=== PATIENT | female | born 1950 | race Caucasian/White ===

== ENCOUNTER 2020-06-12 18:54 | Inpatient (IN) | payer OTHER, SELFPAY ==
[2020-06-12] VITALS (15 sets, daily range): BP systolic 133–246; BP diastolic 67–117; PULSE 60–93; RESP 16–21; TEMP 36.4–36.6; O2SAT 94–99; BMI 58.8; BMI 26.0; BMI 25.7; BMI 68.0
--- NOTE | 2020-06-12 19:01 | ED.RN ---
[facility] IN. PHONE # [phone]. PLEASE CALL WITH ANY UPDATES OR QUESTIONS.
--- NOTE | 2020-06-12 19:24 | CT_ITS ---
STUDY: CT BRAIN WITHOUT CONTRAST REASON FOR EXAM: Female, 70 years old. Facial weakness. RADIATION DOSAGE (If Supplied By Facility): CTDIvol = ( 44.99 ) mGy, DLP = ( 745.49 ) mGycm TECHNIQUE: Transaxial CT imaging of the brain was performed without administration of intravenous contrast material. Individualized dose optimization techniques were used for this CT. COMPARISON: No relevant priors. FINDINGS: Normal soft tissue structures. Normal calvarium. Normal size ventricles and extra-axial spaces for the patient''s age. There are areas of decreased attenuation within the white matter tracts of the supratentorial brain, consistent with microvascular disease changes. There are remote appearing infarcts in both basal ganglia. Lacunar infarct in the right thalamus. Normal brainstem. Normal cerebellum. There is no intracranial hemorrhage. There are no findings of an acute ischemic infarction. Normal visualized paranasal sinuses. CT/Brain/Head without Contrast IMPRESSION: 1. Hypodensities in both basal ganglia and the right thalamus suggesting remote lacunar infarcts. There is continued concern for acute infarct, MRI is recommended. 2. Mild chronic involutional changes appropriate for the patient''s age. Electronically Signed: Praveen Ferrari DO at 20:13 EDT Tel [phone], Service support ,
--- NOTE | 2020-06-12 19:24 | EKG12_ITS ---
Test Reason : NEURO Blood Pressure : / mmHG Vent. Rate : 072 BPM Atrial Rate : 072 BPM P-R Int : 182 ms QRS Dur : 086 ms QT Int : 420 ms P-R-T Axes : 000 -23 148 degrees QTc Int : 459 ms Normal sinus rhythm Minimal voltage criteria for LVH, may be normal variant Lateral infarct , age undetermined , cannot be excluded Abnormal ECG Confirmed by ARNULFO HOPKINS, SHARON ([id number]), editor magazine KETTY GONZALEZ ([id number]) on 06/14/2020 12:46:47 PM Referred By: HUGH Confirmed By:SHARON ARREDONDO MD
--- NOTE | 2020-06-12 19:32 | ED.VISSUMM ---
- ER Visit Summary Date of Service: 06/12/20 Chief Complaint: Hypertension and left facial weakness History of Present Illness: The patient is a 70 F who presents with hypertension left facial weakness that began last week. Patient has been having facial droop since last week. Patient denies any headaches. Patient denies any weakness of her arms or legs. Patient denies any visual changes. Patient states she has noticed her blood pressure to be elevated today. Patient states nothing has been helping her blood pressure. Patient denies any recent fevers or chills. Patient only takes herbal medications. Physical Examination: Vital signs are stable except for an elevated blood pressure of 246/117. Patient is afebrile. Patient is in no acute distress. Oral mucosa is pink and moist. Neck is supple. Trachea is midline. There is no JVD. Pupils are equal, round, and reactive to light bilaterally. Extraocular muscles are intact. Cranial nerves II through XII are intact. There is weakness of the left lower face. Eyebrows are able to elevate equally. Strength is 5/5 bilaterally in the upper and lower extremities. There are no sensory deficits noted. Heart was regular rate and rhythm. Lungs are clear and equal bilateral. Abdomen is soft. Bowel sounds are normal. There is no tenderness. Extremities are intact. There is no calf tenderness or edema. Test Results: EKG was obtained. On my interpretation, it showed a normal sinus rhythm with a rate of 92. DC interval, QRS interval, and QTc intervals were all normal. [place] was normal. There his left ventricular hypertrophy with strain. There are no prior EKGs available for comparison. CT scan of the brain was obtained. There are remote lacunar infarcts in the basal ganglia bilaterally. MRI was recommended for continued concern for possible acute infarct. This was interpreted by the radiologist and reviewed by myself. Portable 1 view chest x-ray was obtained. On my interpretation, lung pop are clear. There is normal cardiac silhouette. Bony thorax is normal. There is no acute process noted. Radiologist also interpreted the x-ray and agrees. CBC was normal. Comprehensive metabolic profile showed a potassium of 2.9. Urinalysis does not show any evidence of urinary tract infection. Troponin was normal. Emergency Department Course and Treatment: Patient was given a dose of labetalol here. She was given a dose of oral potassium. Patient's blood pressure did improve to 203/98 but then went back up to 223/95. Patient was started on a Cardene drip. Case was discussed with the hospitalist. He will admit the patient to ICU. Patient and family understood and were agreeable with the plan. All questions were answered. Disposition: Admit to ICU Impression: 1. Hypertensive emergency Critical care time: 30 minutes. This was time spent obtaining history, performing physical examination, documenting, interpreting test results, ordering medications, discussion with consultants, and determining disposition. This note was generated with [employer] dictation software. It may contain incorrect words, spelling, and punctuation that were not noted in review of the chart prior to signing ED Disposition - Plan for ED Patient: Disposition: Acute Care Hospital [facility] Diagnosis: Hypertensive emergency Referrals: Rosa Cole MD [STAFF PHYSICIAN] -
[2020-06-12 19:48] LABS: Mucous, Urine 0 SEEN /hpf (<or=2+); Red Blood Cells-Urine 0 SEEN /hpf (0-5); Squamous Epithelial Cells - UA 0 SEEN /hpf (5-10)
[2020-06-12 19:49] LABS: Absolute Lymphocyte Count 1.85 X10^3/uL (0.83-4.51); Absolute Neutrophil Count 2.5 X10^3/uL (2.0-7.7); Basophil# 0.04 X10^3/uL; Basophil% 0.8 % (0-1); Eosinophil# 0.17 X10^3/uL; Eosinophils% 3.5 % (0-5); Hematocrit 37.6 % (37-47); Hemoglobin 12.6 g/dL (12.0-15.0); Lymphocyte # 1.85 X10^3/ul (4.0); Lymphocyte % 37.8 % (19-41); Mean Corp Hgb Conc 33.5 g/dL (32-36); Mean Corpuscular Hgb 29.6 pg (27.0-32.0); Mean Corpuscular Volume 88.5 fL (81-99); Mean Platelet Vol. 9.4 fl (6.2-12.0); Monocyte# 0.38 X10^3/uL; Monocyte% 7.8 % (0-10); NRBC Flagged by Analyzer 0 % (0-5); Neutrophil # 2.45 X10^3/uL (2.7-7.7); Neutrophil % 49.9 % (47-70); Platelet Count 147 K/mm3 (150-450); RBC Distribution Width CV 13.1 % (11.6-14.6); RBC Distribution Width SD 42.4 fl (35.1-43.9); Red Blood Count 4.25 M/mm3 (4.2-5.4); White Blood Count 4.9 K/mm3 (4.4-11.0)
[2020-06-12] MEDS: Labetalol (Prefilled) 20 MG/4 ML IV (19:51)
[2020-06-12 19:57] LABS: Color, Urine Yellow (Yellow); Glucose, Dipstick Normal (Normal); Ketone-Dipstick Negative (Negative); Leukocyte Esterase-Dipstick 100 /ul (Negative); Nitrite-Dipstick Negative (Negative); Occult Blood-Urine 10 /ul (Negative); Protein-Dipstick 15 mg/dl (Negative); Urine Bilirubin Dipstick Negative (Negative); Urine Clarity Clear (Clear); Urine Urobilinogen Normal (Normal); Urine pH 6.5 (5.0 - 8.0)
[2020-06-12 20:09] LABS: AST(SGOT) 18 U/L (15-37); Alanine Aminotransfer ALT/SGPT 34 U/L (13-56); Albumin, Serum 3.5 g/dL (3.2-5.0); Alkaline Phosphatase 52 U/L (45-117); Anion Gap 3 (5-15); BUN 19 mg/dL (7-18); BUN/Creat Ratio 24.2 RATIO (10-20); Calcium,Total 8.7 mg/dL (8.5-10.1); Chloride 106 mmol/L (98-107); Creatinine, Serum 0.78 mg/dL (0.55-1.02); EST Glomerular Filtration Rate 77 mL/min (>60); Est Glom Filt Rate - Afr Amer 93 mL/min (>60); Globulin 3.5 g/dL (2.2-4.2); Glucose 96 mg/dL (74-106); Potassium 2.9 mmol/L (3.5-5.1); Sodium Level 143 mmol/L (136-145)
[2020-06-12 20:13] LABS: Bacteria 1+ /hpf (None Seen); White Blood Cells 0-5 SEEN /hpf (0-5)
--- NOTE | 2020-06-12 20:34 | RAD_ITS ---
STUDY: X-RAY CHEST REASON FOR EXAM: Female, 70 years old. Weakness. TECHNIQUE: Single AP portable view of the chest. COMPARISON: None. FINDINGS: Lungs well expanded. There is no acute infiltrate and question small calcified granuloma at the right lung base. There is no pneumothorax.. There is no demonstrated pleural abnormality. Normal size heart. Normal mediastinum and amos. Normal visualized pulmonary arteries. There is minimal atherosclerotic calcification of the aortic arch with tortuosity. There is mild levoscoliosis of the thoracic spine. Normal visualized ribs, clavicles, and shoulders. There is no demonstrated abnormality of the visualized soft tissue structures of the upper abdomen. RAD/Chest 1 View (Portable) IMPRESSION: No acute cardiopulmonary disease. Electronically Signed: Praveen Ferrari DO at 20:54 EDT Tel [phone], Service support ,
[2020-06-12] MEDS: Potassium Chloride Oral Tablet 20 MEQ 40 MEQ PO (20:36)
--- NOTE | 2020-06-12 22:10 | ECHOD_ITS ---
Reason For Study: TIA/CVA Procedure This was a 2D Doppler, Color Flow transthoracic echocardiogram. Exam performed portable in ICU/CCU. Left Ventricle Normal LV size. Concentric left ventricular hypertrophy. Presence of sigmoid septum. Left ventricular systolic function is normal. The estimated ejection fraction is 70 %. Stage 1 diastolic dysfunction. E/E' suggestive of increased left atrial filling pressure. No regional wall motion abnormalities noted. Right Ventricle Normal right ventricle. Normal systolic function. Atria The left atrium is mildly enlarged. Normal right atrium. Mitral Valve Mild (1+) eccentric mitral valve insufficiency. Tricuspid Valve Mild to moderate (1-2+) tricuspid valve insufficiency. Normal pulmonary artery pressure. Aortic Valve Normal aortic valve. Pulmonic Valve The pulmonic valve is not well visualized. Great Vessels The pulmonary artery is normal size. Pericardium/Pleural No pericardial effusion. Medication Performed a rapid injection of agitated mix of 9 cc saline and 1cc air to assess for atrial septal defect. Contrast study showed no right to left shunting. MMode/2D Measurements & Calculations LVIDd: 3.7 cm IVSd: 1.8 cm Ao root diam: 3.2 cm LVIDs: 2.1 cm LVPWd: 1.6 cm RVDd: 3.4 cm FS: 43.8 % LAV(MOD-bp): 62.2 ml EDV(MOD-sp4): 64.7 ml EDV(MOD-sp2): 63.5 ml LAV(MOD-bp) Indexed: 35.4 ml/m2 ESV(MOD-sp4): 19.1 ml EF(MOD-sp2): 62.5 % LAV(MOD-sp2): 52.6 ml EF(MOD-sp4): 70.4 % LAV(MOD-sp4): 65.9 ml SV(MOD-sp4): 45.6 ml SV(MOD-sp2): 39.7 ml LA A4 area: 20.4 cm2 LA dimension(2D): 2.8 cm RA A4 area: 16.5 cm2 Doppler Measurements & Calculations MV E max adithya: 59.3 cm/sec Lat Peak E' Adithya: 4.8 cm/sec Med Peak E' Adithya: 3.9 cm/sec MV A max adithya: 75.6 cm/sec E/E' lat: 12.2 E/E' med: 15.0 MV E/A: 0.79 Ao V2 max: 135.1 cm/sec LV V1 max: 90.5 cm/sec PA V2 max: 79.1 cm/sec Ao max P.3 mmHg LV V1 max P.3 mmHg TR max adithya: 236.3 cm/sec TR max P.6 mmHg ECHO/Echo Complete Interpretation Summary Stage 1 diastolic dysfunction. Normal LV size. Concentric left ventricular hypertrophy. Presence of sigmoid septum Left ventricular systolic function is normal. The estimated ejection fraction is 70 %. E/E' suggestive of increased left atrial filling pressure The left atrium is mildly enlarged. Mild (1+) eccentric mitral valve insufficiency. Mild to moderate (1-2+) tricuspid valve insufficiency. Normal pulmonary artery pressure. Contrast study showed no right to left shunting Ordering Physician: Ghassan Angelo Referring Physician: Fer Long Performed By: Christina Scott RDCS
[2020-06-12] MEDS: Atorvastatin Calcium 40 MG Tablet PO (22:47)
[2020-06-12] MEDS: Potassium Chloride 10mEq/100mL 10 MEQ/100 ML IV.SOLN. 100 MEQ IV BOLUS (22:47)
--- NOTE | 2020-06-12 22:54 | PCM.HP.STD ---
Problem List (1) Hypertensive emergency Status: Acute (2) Stroke-like symptoms Status: Acute History of Present Illness Date of Admission: 06/12/20 Chief Complaint: Left facial droop The patient is a 70 year old Zain female with a significant history of hypertension on herbs who presents to the emergency department with weakness of the left face x1 week. Reportedly patient saw some kind of provider on the same day of presentation and she was instructed to come to the emergency department. Her symptoms has been persistent and same. . Past Medical History Medical History: Medical History (Last Updated 06/12/20 @ 23:[address] Ghassan Angelo MD) Hypertension I10 Allergies No Known Allergies Allergy (Verified 06/12/20 18:58) Home Medications: Ambulatory Orders Medication Instructions Recorded NK 06/12/20 Surgical History: no surgical history, - Smoking Status: Never smoker - *Family History Maternal History Items: Hypertension, Stroke Paternal History Items: Heart Disease Review of Systems Constitutional: Denies: Chills, Fever, Weight Change HEENT: Denies: Head Aches, Sinus Congestion, Sinus Drainage Cardiovascular: Denies: Chest Pain, Palpitations Respiratory: Denies: Cough, Shortness of breath at rest, Sputum production Gastrointestinal: Denies: Abdominal Pain, Nausea, Vomiting Genitourinary: Denies: Dysuria Musculoskeletal: Denies: Joint Pain, Joint Tenderness Skin: Denies: Rash, Wounds Neurological: Denies: Numbness, Tingling Psychiatric: Denies: Anxiety, Depression, Homicidal Ideations, Suicidal Ideations Hematologic/ Lymphatic: Denies: Easy Bruising, Easy Bleeding VTE Information - Inpt Only VTE Present on Admission: No VTE Mechan Device Prophylaxis: None VTE Pharm Prophylaxis ordered?: Yes Patient Problems: Active and Suspected Problems (Last Updated 06/12/20 @ 23:[address] Ghassan Angelo MD) Hypertensive emergency (Acute) Stroke-like symptoms (Acute) - Physical Exam Vitals/I&O's: Vital Signs Temp Pulse Resp BP Pulse Ox 97.6 F L 81 19 H 152/67 H 95 06/12/20 22:16 06/12/20 22:30 06/12/20 22:30 06/12/20 22:30 06/12/20 22:30 Oxygen Delivery Method Room Air Weight: 68.039 kg Body Mass Index (BMI) 25.7 Finger Stick Blood Glucose 96 General: Alert, Oriented x3, Cooperative HEENT: Atraumatic, PERRLA, EOMI, Normocephalic Neck: Supple, No JVD, Negative Carotid Bruits Lungs: Clear to auscultation, Normal air movement Cardiovascular: Regular rate, Normal S1, Normal S2, No murmurs Abdomen: Bowel Sounds Present, Soft, Non Tender Extremities: No edema, Capillary Refill Less than 3 Seconds Skin: No rashes, No breakdown Musculoskeletal: No Tenderness to Palpation of Joints or Extremities Neurological: Cranial nerves II-XII grossly intact, Facial Droop - Left, Sensory exam intact to light touch and pain, - - No dysmetria. Psych/Mental Status: Normal Affect, Appropriate Laboratory Results 06/12/20 19:20: Urine Color Yellow, Urine Clarity Clear, Urine pH 6.5, Ur Specific [place] 1.010, Urine Protein 15 H, Urine Glucose (UA) Normal, Urine Ketones Negative, Urine Occult Blood 10 H, Urine Nitrite Negative, Urine Bilirubin Negative, Urine Urobilinogen Normal, Ur Leukocyte Esterase 100 H, Urine RBC 0 SEEN, Urine WBC 0-5 SEEN, Ur Squamous Epith Cells 0 SEEN, Urine Bacteria 1+, Urine Mucus 0 SEEN 06/12/20 19:30: WBC 4.9, RBC 4.25, Hgb 12.6, Hct 37.6, MCV 88.5, MCH 29.6, MCHC 33.5, RDW Std Deviation 42.4, RDW Coeff of [place] 13.1, Plt Count 147 L, MPV 9.4, Immature Gran % (Auto) 0.200, Neut % (Auto) 49.9, Lymph % (Auto) 37.8, [place] % (Auto) 7.8, Eos % (Auto) 3.5, Baso % (Auto) 0.8, Absolute Neuts (auto) 2.5, Absolute Lymphs (auto) 1.85, Nucleated RBC % 0 06/12/20 19:30: Sodium 143, Potassium 2.9 L, Chloride 106, Carbon Dioxide 34.0 H, Anion Gap 3 L, BUN 19 H, Creatinine 0.78, Estim Creat Clear Calc 47.10, Est GFR (MDRD) Af Amer 93, Est GFR (MDRD) Non-Af 77, BUN/Creatinine Ratio 24.2 H, Glucose 96, Calcium 8.7, Total Bilirubin 0.50, AST 18, ALT 34, Alkaline Phosphatase 52, Troponin I < 0.015, Total Protein 7.0, Albumin 3.5, Globulin 3.5, Albumin/Globulin Ratio 1.0 Current Medications Acetaminophen (Acetaminophen 325 Mg Tablet) 650 mg PO Q6H PRN PRN PRN Reason: Pain Score 1-10/Temp > 100.7 F Aspirin (Aspirin 81 Mg Tab.Chew) 81 mg PO DAILY@0800 [facility] Atorvastatin Calcium (Atorvastatin Calcium 40 Mg Tablet) 40 mg PO QHS [facility] Last Admin: 06/12/20 22:47 Dose: 40 mg Documented by: Enoxaparin Sodium (Enoxaparin 40 Mg/0.4 Ml Syringe) 40 mg SC DAILY [facility] Nicardipine HCl 25 mg/ Sodium (Chloride) 250 mls @ 50 mls/hr CONT INF .Q5H [facility]; Protocol Last Admin: 06/12/20 21:32 Dose: 5 mg/hr, 50 mls/hr Documented by: Potassium Chloride () 10 meq in 100 mls @ 100 mls/hr IV BOLUS Q1H [facility] Stop: 06/13/20 02:14 Last Admin: 06/12/20 22:47 Dose: 100 mls/hr Documented by: Sodium Chloride () 250 mls @ 15 mls/hr IV .[id number] PRN PRN Reason: Saline Flush Melatonin (Melatonin 3 Mg Tablet) 3 mg PO QHS PRN PRN PRN Reason: INSOMNIA Ondansetron HCl (Ondansetron 4 Mg/2 Ml Vial) 4 mg IV Q8H PRN PRN PRN Reason: NAUSEA/VOMITING Senna/Docusate Sodium (Senna/Docusate Sodium 1 Tablet) 2 tablet PO BID PRN PRN PRN Reason: Constipation Sodium Chloride (0.9% Saline Lock 10 Ml Syringe) 10 - 40 ml IV UD PRN PRN Reason: SALINE FLUSH Assessment/Plan All Active Problems (Last Updated 06/12/20 @ 23:[address] Ghassan Angelo MD) Hypertensive emergency (Acute) Stroke-like symptoms (Acute) The patient is a 70 year old Zain female with a significant history of hypertension on herbs who presents to emergency department with weakness of the left face x1 week; and found to have severely elevated blood pressure. Hypertensive emergency On Cardene drip at emergency department and continued. Continue Cardene drip to keep map of less than 125. Echocardiogram ordered. Actual EKG image was reviewed. EKG with LVH. Urinalysis with mild proteinuria. Strokelike symptoms Serial NINDS NIH Scale ordered CT of the head with hypodensities in both basal ganglia and the right thalamus suggesting remote lacunar infarcts. -Check Hba1c, Lipid level Physical therapy, occupational therapy to work with patient. N.p.o. until bedside swallow eval. Daily aspirin. High intensity statin ordered. Liver enzymes are unremarkable. Patient is outside window of permissive hypertension. MRI/MRA of head; brain; and neck. Echocardiogram as above. Hypokalemia Received po replacement at the emergency department. 40 mEq IV potassium ordered. Trend BMP. Check magnesium. Asymptomatic bacteriuria Patient with urine protein of 15. Urine occult blood obtained. Urine leukocyte Estrace of 100. No treatment indicated at this time since patient has no symptoms. Urine bacteria 1+. With positive urine occult blood recommend longitudinal follow-up. DVT prophylaxis Subcutaneous Lovenox ordered. Inpatient E&M: 70559 Init Hosp L3
[2020-06-13] VITALS (27 sets, daily range): BP systolic 145–231; BP diastolic 65–104; PULSE 57–82; RESP 14–24; TEMP 36.6–36.9; O2SAT 95–99
[2020-06-13] MEDS: Potassium Chloride 10mEq/100mL 10 MEQ/100 ML IV.SOLN. 100 MEQ IV BOLUS ×3 (00:01→02:53)
[2020-06-13 03:21] LABS: Anion Gap 7 (5-15); BUN 16 mg/dL (7-18); BUN/Creat Ratio 26.3 RATIO (10-20); Calcium,Total 8.7 mg/dL (8.5-10.1); Chloride 106 mmol/L (98-107); Cholesterol 226 mg/dL (200); Creatinine, Serum 0.61 mg/dL (0.55-1.02); EST Glomerular Filtration Rate 103 mL/min (>60); Est Glom Filt Rate - Afr Amer 125 mL/min (>60); Glucose 101 mg/dL (74-106); Hemoglobin A1c 5.1 % (3.8-5.6); High Density Lipoprotein 72 mg/dL; Potassium 3.3 mmol/L (3.5-5.1); Sodium Level 144 mmol/L (136-145); Triglycerides 73 mg/dL; Very Low Density Lipoprotein 15 mg/dL (5-40)
[2020-06-13] MEDS: Labetalol (Prefilled) 20 MG/4 ML 10 MG IV ×2 (05:37→15:35)
[2020-06-13] MEDS: Aspirin 81 MG TAB.CHEW PO (09:30)
[2020-06-13] MEDS: Enoxaparin 40 MG/0.4 ML Syringe SC (09:31)
--- NOTE | 2020-06-13 10:29 | PN_ITS ---
Patient Problems: Active and Suspected Problems (Last Updated 06/12/20 @ 23:[address] Ghassan Angelo MD) Hypertensive emergency (Acute) Stroke-like symptoms (Acute) Subjective: Still with left facial droop for several days. Denies any other weakness. Has had amblyopia chronically. Vitals/I&O's: Vital Signs Temp Pulse Resp BP Pulse Ox 36.7 C 71 15 153/73 H 97 06/13/20 10:00 06/13/20 10:00 06/13/20 10:00 06/13/20 10:00 06/13/20 10:00 Oxygen Delivery Method Room Air Weight: 68.5 kg Body Mass Index (BMI) 25.7 Finger Stick Blood Glucose 96 Intake and Output for Last 24 Hours 06/11/20 06/12/20 06/13/20 23:59 23:59 23:59 Intake Total 273.33 / 273.33 400 / 400 Output Total 250 / 250 1200 / 1200 Balance 23.33 / 23.33 -800 / -800 General: Alert, No apparent distress HEENT: Atraumatic, PERRLA, Normocephalic, - - amblyopia with impaired medial gaze of left eye Oral: Moist Mucosa, No Gingival or Mucosal Lesions/ Ulcerations Neck: No Nodes, Thyroid Normal Size and Texture Lungs: Clear to auscultation, Normal air movement, No wheeze Cardiovascular: Regular rate, Regular Rhythm, Normal S1, Normal S2 Abdomen: Bowel Sounds Present, Soft, Non Tender, Non-Distended Extremities: No edema, No Calf Tenderness Psych/Mental Status: Normal Affect, Appropriate Laboratory Results 06/12/20 19:20: Urine Color Yellow, Urine Clarity Clear, Urine pH 6.5, Ur Specific [place] 1.010, Urine Protein 15 H, Urine Glucose (UA) Normal, Urine Ketones Negative, Urine Occult Blood 10 H, Urine Nitrite Negative, Urine Bilirubin Negative, Urine Urobilinogen Normal, Ur Leukocyte Esterase 100 H, Urine RBC 0 SEEN, Urine WBC 0-5 SEEN, Ur Squamous Epith Cells 0 SEEN, Urine Bacteria 1+, Urine Mucus 0 SEEN 06/12/20 19:30: WBC 4.9, RBC 4.25, Hgb 12.6, Hct 37.6, MCV 88.5, MCH 29.6, MCHC 33.5, RDW Std Deviation 42.4, RDW Coeff of [place] 13.1, Plt Count 147 L, MPV 9.4, Immature Gran % (Auto) 0.200, Neut % (Auto) 49.9, Lymph % (Auto) 37.8, [place] % (Auto) 7.8, Eos % (Auto) 3.5, Baso % (Auto) 0.8, Absolute Neuts (auto) 2.5, Absolute Lymphs (auto) 1.85, Nucleated RBC % 0 06/12/20 19:30: Sodium 143, Potassium 2.9 L, Chloride 106, Carbon Dioxide 34.0 H , Anion Gap 3 L, BUN 19 H, Creatinine 0.78, Estim Creat Clear Calc 47.10, Est GFR (MDRD) Af Amer 93, Est GFR (MDRD) Non-Af 77, BUN/Creatinine Ratio 24.2 H, Glucose 96, Calcium 8.7, Total Bilirubin 0.50, AST 18, ALT 34, Alkaline Phosphatase 52, Troponin I < 0.015, Total Protein 7.0, Albumin 3.5, Globulin 3.5, Albumin/Globulin Ratio 1.0 06/13/20 03:00: Sodium 144, Potassium 3.3 L, Chloride 106, Carbon Dioxide 31.0, Anion Gap 7, BUN 16, Creatinine 0.61, Estim Creat Clear Calc 45.20, Est GFR (MDRD) Af Amer 125, Est GFR (MDRD) Non-Af 103, BUN/Creatinine Ratio 26.3 H, Glucose 101, Calcium 8.7, Magnesium 2.0, Triglycerides 73, Cholesterol 226 H, LDL Cholesterol 139 H, VLDL Cholesterol 15, HDL Cholesterol 72 06/13/20 03:00: Hemoglobin A1c 5.1 Current Medications Acetaminophen (Acetaminophen 325 Mg Tablet) 650 mg PO Q6H PRN PRN PRN Reason: Pain Score 1-10/Temp > 100.7 F Amlodipine Besylate (Amlodipine 10 Mg Tablet) 10 mg PO DAILY [facility] Last Admin: 06/13/20 06:38 Dose: Not Given Documented by: Aspirin (Aspirin 81 Mg Tab.Chew) 81 mg PO DAILY@0800 [facility] Last Admin: 06/13/20 09:30 Dose: 81 mg Documented by: Atorvastatin Calcium (Atorvastatin Calcium 80 Mg Tablet) 80 mg PO QHS [facility] Enoxaparin Sodium (Enoxaparin 40 Mg/0.4 Ml Syringe) 40 mg SC DAILY [facility] Last Admin: 06/13/20 09:31 Dose: 40 mg Documented by: Hydralazine HCl (Hydralazine 20 Mg/Ml Vial) 10 mg IV Q4H PRN PRN PRN Reason: SBP > 160 Nicardipine HCl 25 mg/ Sodium (Chloride) 250 mls @ 50 mls/hr CONT INF .Q5H [facility]; Protocol Last Admin: 06/13/20 10:12 Dose: Not Given Documented by: Sodium Chloride () 250 mls @ 15 mls/hr IV .[id number] PRN PRN Reason: Saline Flush Labetalol HCl (Labetalol (Prefilled) 20 Mg/4 Ml) 10 mg IV Q4H PRN PRN PRN Reason: SBP > 160 Last Admin: 06/13/20 05:37 Dose: 10 mg Documented by: Melatonin (Melatonin 3 Mg Tablet) 3 mg PO QHS PRN PRN PRN Reason: INSOMNIA Ondansetron HCl (Ondansetron 4 Mg/2 Ml Vial) 4 mg IV Q8H PRN PRN PRN Reason: NAUSEA/VOMITING Senna/Docusate Sodium (Senna/Docusate Sodium 1 Tablet) 2 tablet PO BID PRN PRN PRN Reason: Constipation Sodium Chloride (0.9% Saline Lock 10 Ml Syringe) 10 - 40 ml IV UD PRN PRN Reason: SALINE FLUSH STROKE Vital Signs/Narrative: Vital Signs Temp Pulse Resp BP BP Pulse Ox 06/13/20 10:00 36.7 C 71 15 153/73 H 97 06/13/20 09:00 73 24 H 153/73 H 97 06/13/20 08:00 36.8 C 58 L 17 171/94 H 98 06/13/20 07:34 62 06/13/20 07:00 67 18 188/91 H 98 Medical Necessity - Tobacco Use Smoking Status: Never smoker Assessment/Plan All Active Problems (Last Updated 06/12/20 @ 23:[address] Ghassan Angelo MD) Hypertensive emergency (Acute) Stroke-like symptoms (Acute) 1. Left facial droop. CVA work up underway. MRI, echo pending on ASA, atorvastatin 2. HTN emergency improved off nicardipine gtt amlodipine 10 3. Hypokalemia improving Mag normal replace as needed monitor 4. asymptomatic bacteruria only 0-5 WBC no abx needed 5. VTE prophylaxis: LMWH 6. Transfer out of ICU to PCU. Inpatient E&M: 23737 Subs Hosp L3
--- NOTE | 2020-06-13 10:59 | CASEMGMT ---
Social Work SW made referral to Zain Rodriguez Liaison. Shania to see patient and will provide update. FLIP Godinez
--- NOTE | 2020-06-13 12:17 | CASEMGMT ---
Social Work MAYTE met with pt in room and introduced self and role of SW. Pt sitting in chair, A&0x3 and agreeable to speak with SW. Address verified. PCP: Fer Long. Pt states she saw Mireya, a Natural Practitioner for the first time yesterday and this is who brought the patient to the hospital. Insurance: [facility] Living Will/ Health Care POA: None LNOK: Demetrius Murphy, . Pt has 16 children. Son Aleksandar is involved and a daughter Caryn lives next door and can assist. Living Arrangements: Pt lives with her spouse in a one story home. 4 steps to enter. Daughter Caryn and family live in the second home on the property. Pt has been independent with all ADLs and IADLs up until a week ago. Pt states over the last week she was started a new herbal medication (calling it 717) and she was very sleepy. Transportation: pt is uncertain how she will get home. She states she does not have a regular subway train driver but is wondering if Mireya the natural practitioner could be of assistance. DME: Pt states she has no DME at home. MAYTE spoke with Zain Jauregui Liaison who also met with pt and Shania states she would contact Mireya and request pt be notified that pt can have visitors and that pt is requesting Demetrius's presence and assistance with decision making and information gathering. Physician updated as well. Plan: Return home with spouse. FLIP Godinez
--- NOTE | 2020-06-13 12:35 | CON.PCM_ITS ---
Problem List (1) Hypertensive emergency Status: Acute (2) Stroke-like symptoms Status: Acute Reason for Consult Date of Consultation: 06/13/20 - Late entry Reason for Consultation: Hypertensive emergency History of Present Illness: The patient is a 70 year old F, with no reported past medical history, who presented to [facility] on 06/12/2020 secondary to elevated blood pressures. Patient reportedly had noted a facial droop last week and presented to her PCP with no acute interventions. Patient had denied any other focal neurologic deficits such as weakness, paresthesias, headache or visual changes. On the day of presentation, patient noted that she had some elevated blood pressures, so came to the ER for evaluation. Patient states she does follow with an herbal physician, but takes no other medications. Patient is unable to report to her current herbal medications. On presentation to the ER, patient was noted to have a blood pressure of 246/117. Patient was afebrile and was noted to have a facial droop. Remaining neurologic exam was unremarkable. An EKG was obtained showing a normal sinus rhythm with normal intervals. CT of the head was obtained showing possible lacunar infarcts. Chest x-ray was unremarkable along with blood work-up. Patient was noted to have a potassium of 2.9, but no signs of infection. In the ER, patient was given labetalol and oral potassium. Blood pressure improved to 203/98 transiently, but ultimately had to be started on a Cardene drip. Patient was transferred to the intensive care unit for further evaluation. Since being in the intensive care unit, patient has been off of Cardene. Patient had initially refused any oral medications, but after discussion with the patient, patient did agree to Norvasc. Patient also agreed to a statin and aspirin therapy when told of her concerns for a possible stroke. Patient did not provide much additional information. Subsequent MRI and MRA have been ordered. Review of systems otherwise negative from a constitutional, HEENT, respiratory, cardiovascular, GI, genitourinary, musculoskeletal, skin, neurologic, psychiatric and hematologic system unless stated above. Past Medical History Medical History: Medical History (Last Updated 06/12/20 @ 23:[address] Ghassan Angelo MD) Hypertension I10 Allergies No Known Allergies Allergy (Verified 06/12/20 18:58) Home Medications: Ambulatory Orders Medication Instructions Recorded NK 06/12/20 Surgical History: no surgical history, - Smoking Status: Never smoker - *Family History Maternal History Items: Hypertension, Stroke Paternal History Items: Heart Disease Review of Systems Comment: See HPI Patient Problems: Active and Suspected Problems (Last Updated 06/12/20 @ 23:[address] Ghassan Angelo MD) Hypertensive emergency (Acute) Stroke-like symptoms (Acute) Objective: All imaging was personally reviewed. Agree with formal interpretation. Patient does appear to have bilateral possible infarcts in the lacunar area on my review. Chest x-ray was unremarkable except for some mild hyperinflation. - Physical Exam Vitals/I&O's: Vital Signs Temp Pulse Resp BP Pulse Ox 36.7 C 69 15 153/73 H 97 06/13/20 10:00 06/13/20 11:49 06/13/20 10:00 06/13/20 10:00 06/13/20 10:00 Oxygen Delivery Method Room Air Weight: 68.5 kg Body Mass Index (BMI) 25.7 Finger Stick Blood Glucose 96 Intake and Output for Last 24 Hours 06/11/20 06/12/20 06/13/20 23:59 23:59 23:59 Intake Total 273.33 / 273.33 640 / 640 Output Total 250 / 250 1500 / 1500 Balance 23.33 / 23.33 -860 / -860 General: Alert, Oriented x3, Cooperative, No apparent distress, - - No dysarthria HEENT: Atraumatic, Normocephalic, - - Disconjugate gaze. Flattening labial fold Oral: Moist Mucosa, No Gingival or Mucosal Lesions/ Ulcerations Neck: Supple, No JVD, No Nodes, Trachea Midline Lungs: Clear to auscultation, Normal air movement, No rhonchi, No wheeze, No rales Cardiovascular: Regular rate, Regular Rhythm, Normal S1, Normal S2, Murmur - Grade 2 out of 6 systolic ejection murmur at the right sternal border, No rub noted, No Gallop Abdomen: Bowel Sounds Present, Soft, Non Tender, Non-Distended Extremities: No clubbing, No cyanosis, No edema Skin: No rashes, No breakdown Musculoskeletal: No Tenderness to Palpation of Joints or Extremities Lymphatic: No Cervical, Supraclavicular, or Inguinal Adenopathy Neurological: - - Disconjugate gaze with flattened labial fold. Symmetric strength otherwise. Sensation intact. Psych/Mental Status: Alert and oriented to time, place, person, mood and affect Laboratory Results 06/12/20 19:20: Urine Color Yellow, Urine Clarity Clear, Urine pH 6.5, Ur Specific [place] 1.010, Urine Protein 15 H, Urine Glucose (UA) Normal, Urine Ketones Negative, Urine Occult Blood 10 H, Urine Nitrite Negative, Urine Bilirubin Negative, Urine Urobilinogen Normal, Ur Leukocyte Esterase 100 H, Urine RBC 0 SEEN, Urine WBC 0-5 SEEN, Ur Squamous Epith Cells 0 SEEN, Urine Bacteria 1+, Urine Mucus 0 SEEN 06/12/20 19:30: WBC 4.9, RBC 4.25, Hgb 12.6, Hct 37.6, MCV 88.5, MCH 29.6, MCHC 33.5, RDW Std Deviation 42.4, RDW Coeff of [place] 13.1, Plt Count 147 L, MPV 9.4, Immature Gran % (Auto) 0.200, Neut % (Auto) 49.9, Lymph % (Auto) 37.8, Alexander % (Auto) 7.8, Eos % (Auto) 3.5, Baso % (Auto) 0.8, Absolute Neuts (auto) 2.5, Absolute Lymphs (auto) 1.85, Nucleated RBC % 0 06/12/20 19:30: Sodium 143, Potassium 2.9 L, Chloride 106, Carbon Dioxide 34.0 H , Anion Gap 3 L, BUN 19 H, Creatinine 0.78, Estim Creat Clear Calc 47.10, Est GFR (MDRD) Af Amer 93, Est GFR (MDRD) Non-Af 77, BUN/Creatinine Ratio 24.2 H, Glucose 96, Calcium 8.7, Total Bilirubin 0.50, AST 18, ALT 34, Alkaline Phosphatase 52, Troponin I < 0.015, Total Protein 7.0, Albumin 3.5, Globulin 3.5, Albumin/Globulin Ratio 1.0 06/13/20 03:00: Sodium 144, Potassium 3.3 L, Chloride 106, Carbon Dioxide 31.0, Anion Gap 7, BUN 16, Creatinine 0.61, Estim Creat Clear Calc 45.20, Est GFR (MDRD) Af Amer 125, Est GFR (MDRD) Non-Af 103, BUN/Creatinine Ratio 26.3 H, Glucose 101, Calcium 8.7, Magnesium 2.0, Triglycerides 73, Cholesterol 226 H, LDL Cholesterol 139 H, VLDL Cholesterol 15, HDL Cholesterol 72 06/13/20 03:00: Hemoglobin A1c 5.1 Current Medications Acetaminophen (Acetaminophen 325 Mg Tablet) 650 mg PO Q6H PRN PRN PRN Reason: Pain Score 1-10/Temp > 100.7 F Amlodipine Besylate (Amlodipine 10 Mg Tablet) 10 mg PO DAILY [facility] Last Admin: 06/13/20 06:38 Dose: Not Given Documented by: Aspirin (Aspirin 81 Mg Tab.Chew) 81 mg PO DAILY@0800 [facility] Last Admin: 06/13/20 09:30 Dose: 81 mg Documented by: Atorvastatin Calcium (Atorvastatin Calcium 80 Mg Tablet) 80 mg PO QHS [facility] Enoxaparin Sodium (Enoxaparin 40 Mg/0.4 Ml Syringe) 40 mg SC DAILY [facility] Last Admin: 06/13/20 09:31 Dose: 40 mg Documented by: Hydralazine HCl (Hydralazine 20 Mg/Ml Vial) 10 mg IV Q4H PRN PRN PRN Reason: SBP > 160 Nicardipine HCl 25 mg/ Sodium (Chloride) 250 mls @ 50 mls/hr CONT INF .Q5H [facility]; Protocol Last Admin: 06/13/20 10:12 Dose: Not Given Documented by: Sodium Chloride () 250 mls @ 15 mls/hr IV .[id number] PRN PRN Reason: Saline Flush Labetalol HCl (Labetalol (Prefilled) 20 Mg/4 Ml) 10 mg IV Q4H PRN PRN PRN Reason: SBP > 160 Last Admin: 06/13/20 05:37 Dose: 10 mg Documented by: Melatonin (Melatonin 3 Mg Tablet) 3 mg PO QHS PRN PRN PRN Reason: INSOMNIA Ondansetron HCl (Ondansetron 4 Mg/2 Ml Vial) 4 mg IV Q8H PRN PRN PRN Reason: NAUSEA/VOMITING Senna/Docusate Sodium (Senna/Docusate Sodium 1 Tablet) 2 tablet PO BID PRN PRN PRN Reason: Constipation Sodium Chloride (0.9% Saline Lock 10 Ml Syringe) 10 - 40 ml IV UD PRN PRN Reason: SALINE FLUSH Clinical Impression(s) from Imaging Studies Brain CT 06/12/20 19:24 IMPRESSION: 1. Hypodensities in both basal ganglia and the right thalamus suggesting remote lacunar infarcts. There is continued concern for acute infarct, MRI is recommended. 2. Mild chronic involutional changes appropriate for the patient''s age. Electronically Signed: Praveen Ferrari at 20:13 EDT Tel [phone], Service support , Chest X-Ray 06/12/20 20:34 IMPRESSION: No acute cardiopulmonary disease. Electronically Signed: Praveen Ferrari at 20:54 EDT Tel [phone], Service support , Brain MRI 06/13/20 22:10 IMPRESSION: 1. 9 mm ill-defined round T2 FLAIR hyperintensity focus in between the right frontal horn and right ventral thalamus (series 6, image 14). Exact etiology is unknown at this time. MRI brain with intravenous contrast will be very helpful for further evaluation. 2. 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 3. Multiple chronic confluent white matter ischemic changes in both cerebral hemispheres. 4. 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 Electronically Signed: Hipolito Dee MD at 12:00 EDT , Service support , Head MRA 06/13/20 22:10 IMPRESSION: Normal MRA of the head Electronically Signed: Hipolito Dee MD at 12:19 EDT , Service support , Neck MRA 06/13/20 22:10 IMPRESSION: 1. Normal bilateral cervical carotid and vertebral arteries. 2. Normal aortic arch and origins of the great vessels. Electronically Signed: Hipolito Dee MD at 12:20 EDT , Service support , Assessment/Plan Active and Suspected Problems (Last Updated 06/12/20 @ 23:[address] Ghassan Angelo MD) Hypertensive emergency (Acute) Stroke-like symptoms (Acute) RECOMMENDATIONS: 1. TIA/CVA protocol 2. Decreased blood pressure to systolic between 160 and 180 today 3. Add statin therapy with aspirin 4. Titrate to normotension over the next 2 to 3 days 5. Consult PT/OT/neurology IMPRESSIONS: 1. Hypertensive emergency with possible CVA Patient with significantly elevated blood pressures. Baseline is unclear, so a decrease of 10 to 20% would be reasonable at this time. Unclear if MRI is suggestive of hypertensive damage versus an acute infarct. However, would treat with caution and decrease by 10 to 20 %/day until normotensive in 2 to 3 days. Statin and aspirin therapy would be reasonable. Doubt patient will require further Cardene therapy, so okay to go to the floor from my perspective. As needed labetalol and hydralazine will likely be sufficient. Additional work-up for TIA versus stroke would also include an echocardiogram. Defer to hospitalist. MRI is suggestive of possible amyloidosis. Consider neurology consult for recommendations. No seizure activity has been noted. 2. Advanced age/holistic ideals/hypokalemia Complicates care, management, recovery and prognosis. Patient with significant hypertension at this time with inability to report home herbal medications. Patient appears to be open to some medical therapy at this time. We will continue to attempt to communicate importance of appropriate blood pressure control. Continue to replete potassium as necessary Inpatient E&M: [id number] Init Hosp L3
--- NOTE | 2020-06-13 12:35 | CASEMGMT ---
Social Work PHQ9 depression screen completed at this time due to stroke like symptoms. Pt score of 2/27 indicating minimal depression. FLIP Godinez
--- NOTE | 2020-06-13 15:08 | TELEMED_ITS ---
SOC Telemed has confirmed receipt of a request for visit. This document confirms receipt of the order initiating the consult. To find the results of the consultation, please view the patient's reports for the scanned Telemed Consult.
[2020-06-13] MEDS: 0.9% Saline Lock 10 ML Syringe IV (15:36)
--- NOTE | 2020-06-13 15:55 | CHAPLAIN ---
Type of Pastoral Visit _x__ Initial Visit ___ Follow-up Visit ___ On-call Visit ___ General Patient Visit ___ Spiritual Assessment ___ Family Conference ___ Bereavement ___ Rapid Response ___ Code Blue ___ Other (describe below) Pastoral Care Referral From _x__ Patient ___ Family ___ Nurse ___ Physician ___ Precision Machinist ___ Dispenser Operator ___ Other (describe below) Sacrament/Intervention ___ Active listening ___ Anointing ___ Gnosticist ___ Bereavement ___ Communion ___ Erna exploration ___ ___ Life review _x__ Prayer ___ Reconciliation ___ Sacrament of Sick _x__ Supportive presence ___ Wedding ___ Other (describe below) Pastoral Comments
[2020-06-13] MEDS: hydrALAZINE 20 MG/ML Vial 10 MG IV (16:16)
--- NOTE | 2020-06-13 18:20 | NURSING ---
this RN at bedside with patient, SOC consult in progress.
[2020-06-13] MEDS: amLODIPine 10 MG Tablet PO (19:02)
--- NOTE | 2020-06-13 19:04 | NURSING ---
pt refused AM norvasc dose, BP elevated, agreeable to taking norvasc now, educated and POC reviewed.
--- NOTE | 2020-06-13 19:06 | NURSING ---
Imaging called, patient received contrast today, therefore waiting 24hr for MRI with contrast. Repeat MRI with contrast for tomorrow.
[2020-06-13] MEDS: Atorvastatin Calcium 80 MG Tablet PO (20:12)
--- NOTE | 2020-06-13 22:10 | MRI_ITS ---
STUDY: MRI BRAIN WITHOUT CONTRAST REASON FOR EXAM: Female, 70 years old. cva TECHNIQUE: Standardized multiplanar fat and water weighted pulse sequences were obtained. COMPARISON: CT head without contrast 06/12/2020. FINDINGS: No diffusion restriction to suspect acute or subacute ischemic infarct. Normal size of the ventricles and extra-axial spaces for the patient''s age. Multiple T2 FLAIR hyperintensity foci in the white matter of both cerebral hemispheres are at least chronic white matter ischemic changes. There is a small and ill-defined T2 FLAIR hyperintensity in between the right frontal horn of the lateral ventricle and the right ventral thalamus (series 6, image 14). Its exact etiology is unknown at this time. There are multiple tiny round dots of magnetic susceptibility foci in both cerebral hemispheres which are suggestive of multiple amyloid angiopathy. Normal bilateral basal ganglia. 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 There is no extra-axial fluid accumulation. Normal flow voids within the major intracranial circulation suggesting patency by spin echo criteria. Normal sella turcica, pituitary gland, infundibular stalk, optic chiasm and hypothalamus. Normal tectal plate and pineal gland. Normal midbrain, zac and medulla. Normal cerebellum. Normal basal cisterns. Normal bilateral temporal bones. Normal bilateral internal auditory canals. No demonstrated orbital abnormality, within the constraints of a routine brain study. Normal visualized paranasal sinuses. Normal calvarium and skull base. Normal visualized soft tissue structures. Normal visualized upper cervical spine. MRI/Brain without Contrast IMPRESSION: 1. 9 mm ill-defined round T2 FLAIR hyperintensity focus in between the right frontal horn and right ventral thalamus (series 6, image 14). Exact etiology is unknown at this time. MRI brain with intravenous contrast will be very helpful for further evaluation. 2. 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 3. Multiple chronic confluent white matter ischemic changes in both cerebral hemispheres. 4. 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 Electronically Signed: Hipolito Dee MD at 12:00 EDT , Service support ,
--- NOTE | 2020-06-13 22:10 | MRI_ITS ---
STUDY: MRA NECK WITH AND WITHOUT CONTRAST REASON FOR EXAM: Female, 70 years old. cva TECHNIQUE: 3-D [id number] (TOF) imaging was performed in an 1.5 T MRI scanner. Dotarem 15ml iv was administered for the contrast enhanced images. COMPARISON: None. FINDINGS: RIGHT CAROTID ARTERIES: Normal right common carotid artery (CCA). Normal right internal carotid bulb. Normal origin of the right internal carotid (ICA) artery without a hemodynamically significant stenosis. Normal visualized cervical portion of the right internal carotid artery. Normal origin of the right external carotid artery (ECA). LEFT CAROTID ARTERIES: Normal left common carotid artery (CCA). Normal left internal carotid bulb. Normal origin of the left internal carotid (ICA) artery without a hemodynamically significant stenosis. Normal visualized cervical portion of the left internal carotid artery. Normal origin of the left external carotid artery (ECA). VERTEBRAL ARTERIES: Normal antegrade flow within the bilateral vertebral artery without a hemodynamically significant stenosis. MRI/MRA Neck WITH and W/O Contrast IMPRESSION: 1. Normal bilateral cervical carotid and vertebral arteries. 2. Normal aortic arch and origins of the great vessels. Electronically Signed: Hipolito Dee MD at 12:20 EDT , Service support ,
--- NOTE | 2020-06-13 22:10 | MRI_ITS ---
STUDY: MRA OF THE HEAD WITHOUT CONTRAST REASON FOR EXAM: Female, 70 years old. cva TECHNIQUE: 3-D [id number] (TOF) imaging was performed with MIPs. The study was performed unenhanced. COMPARISON: None. FINDINGS: Normal bilateral petrous carotid arteries. Normal right cavernous carotid artery with a normal supraclinoid bifurcation. Normal left cavernous carotid artery with a normal supraclinoid bifurcation. Normal right A1 segment of the anterior cerebral artery. Normal left A1 segment of the anterior cerebral artery. Normal intact anterior communicating artery (ACOM). Normal bilateral A2 segments of the anterior cerebral arteries. Normal right M1 and M2 segments of the middle cerebral arteries, with a normal M1 bifurcation. Normal left M1 and M2 segments of the middle cerebral arteries, with a normal M1 bifurcation. Normal right posterior communicating artery (PCOM). Normal left posterior communicating artery (PCOM). Normal bilateral vertebral arteries. The left is dominant. Normal basilar artery with a normal basilar bifurcation. The visualized bilateral superior cerebellar (SCA) arteries are normal. Normal bilateral P1, P2 and visualized P3 segments of the posterior cerebral arteries. There is no demonstrated aneurysm of the [place]. There is no major vessel occlusion or hemodynamically significant stenosis. Subacute lacunar ischemic infarct in the left posterior internal capsule. MRI/MRA Head ONLY without Contrast IMPRESSION: Normal MRA of the head Electronically Signed: Hipolito Dee MD at 12:19 EDT , Service support ,
[2020-06-14] VITALS (9 sets, daily range): BP systolic 148–169; BP diastolic 87–107; PULSE 64–81; RESP 16–18; TEMP 36.7–36.9; O2SAT 95–99
[2020-06-14 06:46] LABS: Anion Gap 5 (5-15); BUN 22 mg/dL (7-18); BUN/Creat Ratio 33.6 RATIO (10-20); Calcium,Total 9.1 mg/dL (8.5-10.1); Chloride 106 mmol/L (98-107); Creatinine, Serum 0.66 mg/dL (0.55-1.02); EST Glomerular Filtration Rate 95 mL/min (>60); Est Glom Filt Rate - Afr Amer 115 mL/min (>60); Glucose 97 mg/dL (74-106); Potassium 3.2 mmol/L (3.5-5.1); Sodium Level 142 mmol/L (136-145)
[2020-06-14] MEDS: Aspirin 81 MG TAB.CHEW PO (07:55)
[2020-06-14] MEDS: amLODIPine 10 MG Tablet PO (07:56)
[2020-06-14] MEDS: Enoxaparin 40 MG/0.4 ML Syringe SC (07:56)
--- NOTE | 2020-06-14 09:25 | PN_ITS ---
Subjective: Patient transferred out of the intensive care unit yesterday. Patient states she feels subjectively unchanged compared to previous. Patient is not reporting any chest pain or headache at this time. General: Alert, Oriented x3, Cooperative, No apparent distress, - - No conversational dyspnea HEENT: Atraumatic, PERRLA, EOMI, Normocephalic, - - No scleral icterus or injection noted Oral: Moist Mucosa, No Gingival or Mucosal Lesions/ Ulcerations Neck: Supple, No JVD, No Nodes, Trachea Midline Lungs: Clear to auscultation, Normal air movement, No rhonchi, No wheeze, No rales Cardiovascular: Regular rate, Regular Rhythm, Normal S1, Normal S2, Murmur, No rub noted, No Gallop Abdomen: Bowel Sounds Present, Soft, Non Tender, Non-Distended Extremities: No clubbing, No cyanosis, No edema Skin: No rashes, No breakdown Musculoskeletal: No Tenderness to Palpation of Joints or Extremities Lymphatic: No Cervical, Supraclavicular, or Inguinal Adenopathy Neurological: Motor Exam 5/5 strength throughout, - - Grossly unchanged compared to previous Psych/Mental Status: Flat Affect Vital Signs Temp Pulse Resp BP Pulse Ox 36.9 C 74 18 169/107 H 99 06/14/20 07:50 06/14/20 07:50 06/14/20 07:50 06/14/20 07:50 06/14/20 07:50 Oxygen Delivery Method Room Air Weight: 66.7 kg Body Mass Index (BMI) 25.7 Finger Stick Blood Glucose 96 Intake and Output for Last 24 Hours 06/12/20 06/13/20 06/14/20 23:59 23:59 23:59 Intake Total 273.33 / 273.33 980 / 980 0 / 0 Output Total 250 / 250 1850 / 1850 Balance 23.33 / 23.33 -870 / -870 0 / 0 Labs (Last 48 Hours) 06/12/20 06/12/20 06/12/20 19:20 19:30 19:30 WBC 4.9 RBC 4.25 Hgb 12.6 Hct 37.6 MCV 88.5 MCH 29.6 MCHC 33.5 RDW Std Deviation 42.4 RDW Coeff of [place] 13.1 Plt Count 147 L MPV 9.4 Immature Gran % (Auto) 0.200 Neut % (Auto) 49.9 Lymph % (Auto) 37.8 [place] % (Auto) 7.8 Eos % (Auto) 3.5 Baso % (Auto) 0.8 Absolute Neuts (auto) 2.5 Absolute Lymphs (auto) 1.85 Nucleated RBC % 0 Sodium 143 Potassium 2.9 L Chloride 106 Carbon Dioxide 34.0 H Anion Gap 3 L BUN 19 H Creatinine 0.78 Estim Creat Clear Calc 47.10 Est GFR (MDRD) Af Amer 93 Est GFR (MDRD) Non-Af 77 BUN/Creatinine Ratio 24.2 H Glucose 96 Hemoglobin A1c Calcium 8.7 Magnesium Total Bilirubin 0.50 AST 18 ALT 34 Alkaline Phosphatase 52 Troponin I < 0.015 Total Protein 7.0 Albumin 3.5 Globulin 3.5 Albumin/Globulin Ratio 1.0 Triglycerides Cholesterol LDL Cholesterol VLDL Cholesterol HDL Cholesterol Urine Color Yellow Urine Clarity Clear Urine pH 6.5 Ur Specific [place] 1.010 Urine Protein 15 H Urine Glucose (UA) Normal Urine Ketones Negative Urine Occult Blood 10 H Urine Nitrite Negative Urine Bilirubin Negative Urine Urobilinogen Normal Ur Leukocyte Esterase 100 H Urine RBC 0 SEEN Urine WBC 0-5 SEEN Ur Squamous Epith Cells 0 SEEN Urine Bacteria 1+ Urine Mucus 0 SEEN 06/13/20 06/13/20 06/14/20 03:00 03:00 05:55 WBC RBC Hgb Hct MCV MCH MCHC RDW Std Deviation RDW Coeff of [place] Plt Count MPV Immature Gran % (Auto) Neut % (Auto) Lymph % (Auto) [place] % (Auto) Eos % (Auto) Baso % (Auto) Absolute Neuts (auto) Absolute Lymphs (auto) Nucleated RBC % Sodium 144 142 Potassium 3.3 L 3.2 L Chloride 106 106 Carbon Dioxide 31.0 31.0 Anion Gap 7 5 BUN 16 22 H Creatinine 0.61 0.66 Estim Creat Clear Calc 45.20 45.20 Est GFR (MDRD) Af Amer 125 115 Est GFR (MDRD) Non-Af 103 95 BUN/Creatinine Ratio 26.3 H 33.6 H Glucose 101 97 Hemoglobin A1c 5.1 Calcium 8.7 9.1 Magnesium 2.0 Total Bilirubin AST ALT Alkaline Phosphatase Troponin I Total Protein Albumin Globulin Albumin/Globulin Ratio Triglycerides 73 Cholesterol 226 H LDL Cholesterol 139 H VLDL Cholesterol 15 HDL Cholesterol 72 Urine Color Urine Clarity Urine pH Ur Specific [place] Urine Protein Urine Glucose (UA) Urine Ketones Urine Occult Blood Urine Nitrite Urine Bilirubin Urine Urobilinogen Ur Leukocyte Esterase Urine RBC Urine WBC Ur Squamous Epith Cells Urine Bacteria Urine Mucus Clinical Impression(s) from Imaging Studies Echocardiogram 06/12/20 22:10 Interpretation Summary Stage 1 diastolic dysfunction. Normal LV size. Concentric left ventricular hypertrophy. Presence of sigmoid septum Left ventricular systolic function is normal. The estimated ejection fraction is 70 %. E/E' suggestive of increased left atrial filling pressure The left atrium is mildly enlarged. Mild (1+) eccentric mitral valve insufficiency. Mild to moderate (1-2+) tricuspid valve insufficiency. Normal pulmonary artery pressure. Contrast study showed no right to left shunting Ordering Physician: Ghassan Angelo Referring Physician: Fer Long Performed By: Christina Scott RDCS Brain MRI 06/13/20 22:10 IMPRESSION: 1. 9 mm ill-defined round T2 FLAIR hyperintensity focus in between the right frontal horn and right ventral thalamus (series 6, image 14). Exact etiology is unknown at this time. MRI brain with intravenous contrast will be very helpful for further evaluation. 2. 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 3. Multiple chronic confluent white matter ischemic changes in both cerebral hemispheres. 4. 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 Electronically Signed: Hipolito Dee MD at 12:00 EDT , Service support , ADDENDUM: 06/13/20 6323 IMPRESSION: 1. 9 mm ill-defined round T2 FLAIR hyperintensity focus in between the right frontal horn and right ventral thalamus (series 6, image 14). Exact etiology is unknown at this time. MRI brain with intravenous contrast will be very helpful for further evaluation. 2. 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 3. Multiple chronic confluent white matter ischemic changes in both cerebral hemispheres. 4. 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 N.B. : MARKO You, confirmed on 06/13/2020 13:17:44 (ET) that the healthcare facility has received the radiology report. Electronically Signed: Hipolito Dee MD at 12:00 EDT , Service support , Head MRA 06/13/20 22:10 IMPRESSION: Normal MRA of the head Electronically Signed: Hipolito Dee MD at 12:19 EDT , Service support , Neck MRA 06/13/20 22:10 IMPRESSION: 1. Normal bilateral cervical carotid and vertebral arteries. 2. Normal aortic arch and origins of the great vessels. Electronically Signed: Hipolito Dee MD at 12:20 EDT , Service support , Medical Necessity - Tobacco Use Smoking Status: Never smoker Assessment/Plan All Active Problems (Last Updated 06/12/20 @ 23:[address] Ghassan Angelo MD) Hypertensive emergency (Acute) Stroke-like symptoms (Acute) RECOMMENDATIONS: 1. TIA/CVA protocol 2. Likely okay to normalize blood pressures at this time 3. Continue statin therapy with aspirin 4. Potassium supplementation per primary service 5. Consult PT/OT/neurology 6. Hemodynamically stable on room air. Will sign off from a critical care perspective IMPRESSIONS: 1. Hypertensive emergency with possible CVA Patient with significantly elevated blood pressures. Baseline is unclear, so a decrease of 10 to 20% would be reasonable at this time. Unclear if MRI is suggestive of hypertensive damage versus an acute infarct. Consider neurology consult. No indication for IV blood pressure control at this time. Blood pressure is improved, but could be optimized. 2. Advanced age/holistic ideals/hypokalemia Complicates care, management, recovery and prognosis. Patient with significant hypertension at this time with inability to report home herbal medications. Patient appears to be open to some medical therapy at this time. We will continue to attempt to communicate importance of appropriate blood pressure control. Continue to replete potassium as necessary per primary service Inpatient E&M: 09231 Subs Hosp L2
--- NOTE | 2020-06-14 11:00 | MRI_ITS ---
STUDY: MRI BRAIN WITH CONTRAST REASON FOR EXAM: Female, 70 years old. thalamic lesion TECHNIQUE: Standardized multiplanar fat and water weighted pulse sequences were obtained. IV 15ml Dotarem was administered for the contrast portion of the examination. COMPARISON: 13 June 2020 FINDINGS: Please refer to immediate prior noncontrast MR for definitive description of right anterior thalamocaudate groove lesion. The lesion enhances mildly and indistinct. MRI/Brain WITH Contrast IMPRESSION: 1. Mild enhancement in the right anterior thalamic lesion. Subacute stage infarct is most probable. Electronically Signed: Jet Angel MD at 16:04 EDT Tel , Service support ,
--- NOTE | 2020-06-14 11:39 | PCM.PN.HOSP ---
Patient Problems: Active and Suspected Problems (Last Updated 06/12/20 @ 23:[address] Ghassan Angelo MD) Hypertensive emergency (Acute) Stroke-like symptoms (Acute) Subjective: Feels well. Denies current complaints. notes that the left facial droop is improving. Vitals/I&O's: Vital Signs Temp Pulse Resp BP Pulse Ox 36.9 C 74 18 169/107 H 99 06/14/20 07:50 06/14/20 07:50 06/14/20 07:50 06/14/20 07:50 06/14/20 07:50 Oxygen Delivery Method Room Air Weight: 66.7 kg Body Mass Index (BMI) 25.7 Finger Stick Blood Glucose 96 Intake and Output for Last 24 Hours 06/12/20 06/13/20 06/14/20 23:59 23:59 23:59 Intake Total 273.33 / 273.33 980 / 980 0 / 0 Output Total 250 / 250 1850 / 1850 Balance 23.33 / 23.33 -870 / -870 0 / 0 General: Alert, No apparent distress, - - left facial droop. HEENT: Atraumatic, Normocephalic Neck: No Nodes, Thyroid Normal Size and Texture Lungs: Clear to auscultation, Normal air movement, No rhonchi, No wheeze Cardiovascular: Regular rate, Regular Rhythm, Normal S1, Normal S2, No murmurs Abdomen: Bowel Sounds Present, Soft, Non Tender, Non-Distended Extremities: No edema, No Calf Tenderness Laboratory Results 06/14/20 05:55: Sodium 142, Potassium 3.2 L, Chloride 106, Carbon Dioxide 31.0, Anion Gap 5, BUN 22 H, Creatinine 0.66, Estim Creat Clear Calc 45.20, Est GFR (MDRD) Af Amer 115, Est GFR (MDRD) Non-Af 95, BUN/Creatinine Ratio 33.6 H, Glucose 97, Calcium 9.1 Current Medications Acetaminophen (Acetaminophen 325 Mg Tablet) 650 mg PO Q6H PRN PRN PRN Reason: Pain Score 1-10/Temp > 100.7 F Amlodipine Besylate (Amlodipine 10 Mg Tablet) 10 mg PO DAILY [facility] Last Admin: 06/14/20 07:56 Dose: 10 mg Documented by: Aspirin (Aspirin 81 Mg Tab.Chew) 81 mg PO DAILY@0800 [facility] Last Admin: 06/14/20 07:55 Dose: 81 mg Documented by: Atorvastatin Calcium (Atorvastatin Calcium 80 Mg Tablet) 80 mg PO QHS [facility] Last Admin: 06/13/20 20:12 Dose: 80 mg Documented by: Enoxaparin Sodium (Enoxaparin 40 Mg/0.4 Ml Syringe) 40 mg SC DAILY [facility] Last Admin: 06/14/20 07:56 Dose: 40 mg Documented by: Hydralazine HCl (Hydralazine 20 Mg/Ml Vial) 10 mg IV Q4H PRN PRN PRN Reason: SBP > 160 Last Admin: 06/13/20 16:16 Dose: 10 mg Documented by: Sodium Chloride () 250 mls @ 15 mls/hr IV .[id number] PRN PRN Reason: Saline Flush Labetalol HCl (Labetalol (Prefilled) 20 Mg/4 Ml) 10 mg IV Q4H PRN PRN PRN Reason: SBP > 160 Last Admin: 06/13/20 15:35 Dose: 10 mg Documented by: Melatonin (Melatonin 3 Mg Tablet) 3 mg PO QHS PRN PRN PRN Reason: INSOMNIA Ondansetron HCl (Ondansetron 4 Mg/2 Ml Vial) 4 mg IV Q8H PRN PRN PRN Reason: NAUSEA/VOMITING Senna/Docusate Sodium (Senna/Docusate Sodium 1 Tablet) 2 tablet PO BID PRN PRN PRN Reason: Constipation Sodium Chloride (0.9% Saline Lock 10 Ml Syringe) 10 - 40 ml IV UD PRN PRN Reason: SALINE FLUSH Last Admin: 06/13/20 15:36 Dose: 20 ml Documented by: STROKE Vital Signs/Narrative: Vital Signs Temp Pulse Resp BP Pulse Ox 06/14/20 07:50 36.9 C 74 18 169/107 H 99 Medical Necessity - Tobacco Use Smoking Status: Never smoker Assessment/Plan All Active Problems (Last Updated 06/12/20 @ 23:[address] Ghassan Angelo MD) Hypertensive emergency (Acute) Stroke-like symptoms (Acute) 1. Left facial droop. CVA work up underway. echo shows an EF 70% no evidence of thrombus MRI showed thalamic lesion, subacute CVA v mass. DW [facility] teleneurology on 06/13, check MRI brain with contrast. on ASA, atorvastatin 2. HTN emergency improved off nicardipine gtt amlodipine 10mg/d still hypertensive, will add lisinopril 10mg/d further adjustments to normotensive state to be facilitated as outpt 3. Hypokalemia improving Mag normal replace monitor 4. asymptomatic bacteruria only 0-5 WBC no abx needed 5. VTE prophylaxis: LMWH 6. Disposition: pending repeat MRI results. Greater than 35 minutes of which greater than 50% of the time was discussing with the patient and about the CVA, abnormal MRI, need for repeat MRI (2 contrast). Inpatient E&M: 73117 [facility] Hosp L3
[2020-06-14] MEDS: Potassium Chloride Oral Tablet 20 MEQ 40 MEQ PO (12:08)
[2020-06-14] MEDS: Lisinopril 10 MG Tablet PO (12:08)
--- NOTE | 2020-06-14 16:20 | PCM.DC ---
- Discharge Diagnoses Current Active Problems: Current Active and Chronic Problems (Last Updated 06/12/20 @ 23:[address] Ghassan Angelo MD) Hypertensive emergency (Acute) Stroke-like symptoms (Acute) You will use the following diet at home:: Cardiac Your food should be the consistency of: Regular Your liquids should be the consistency of: Regular/Thin Call your doctor if you observe: - - unilateral (one-sided) weakness. difficulty speaking. Allergies/Adverse Reactions: Allergies No Known Allergies Allergy (Verified 06/12/20 18:58) Medications to take at Discharge Acetaminophen [Tylenol Tablet] 650 mg PO Q6H PRN PRN tablet 06/14/20 Amlodipine [Norvasc] 10 mg PO DAILY #30 tablet 06/14/20 Aspirin [Aspirin, Baby] 81 mg PO DAILY@0800 #0 tab.chew 06/14/20 Atorvastatin Calcium [Lipitor] 80 mg PO QHS #30 tablet 06/14/20 Lisinopril [Zestril] 10 mg PO DAILY #30 tablet 06/14/20 The following prescriptions were given: Atorvastatin Calcium [Lipitor] 80 mg PO QHS #30 tablet Transmission Status: Pending to [facility] Amlodipine [Norvasc] 10 mg PO DAILY #30 tablet Transmission Status: Pending to [facility] Lisinopril [Zestril] 10 mg PO DAILY #30 tablet Transmission Status: Pending to [facility] Primary Care Physician: Rosa Cole MD [STAFF PHYSICIAN] - Within 2 Weeks Test Results: Test results from this visit will be discussed in further detail at your follow-up appointment, if applicable. Please Follow Up With: Sai Pedroza MD - Neurology When: 4-6 weeks, or another neurologist Proposed Discharge Date: 06/14/20
--- NOTE | 2020-06-14 16:22 | PCM.DC.SUM ---
Discharge Date and Diagnosis - Problem List Patient Problems: Active and Suspected Problems (Last Updated 06/12/20 @ 23:[address] Ghassan Angelo MD) Hypertensive emergency (Acute) Stroke-like symptoms (Acute) Date of Admission: 06/12/20 Date of Discharge: 06/14/20 - Primary Discharge Diagnosis Acute Problems: Active Problems (Last Updated 06/12/20 @ 23:[address] Ghassan Angelo MD) Hypertensive emergency (Acute) Subacute CVA Hospital Course and Treatment Imaging Results: 06/14/20 11:00 Brain WITH Contrast [MRI] Urgent Clinical Impression(s) from Imaging Studies Brain CT 06/12/20 19:24 IMPRESSION: 1. Hypodensities in both basal ganglia and the right thalamus suggesting remote lacunar infarcts. There is continued concern for acute infarct, MRI is recommended. 2. Mild chronic involutional changes appropriate for the patient''s age. Electronically Signed: Praveen Ferrari DO at 20:13 EDT Tel [phone], Service support , Chest X-Ray 06/12/20 20:34 IMPRESSION: No acute cardiopulmonary disease. Electronically Signed: Praveen Ferrari DO at 20:54 EDT Tel [phone], Service support , Echocardiogram 06/12/20 22:10 Interpretation Summary Stage 1 diastolic dysfunction. Normal LV size. Concentric left ventricular hypertrophy. Presence of sigmoid septum Left ventricular systolic function is normal. The estimated ejection fraction is 70 %. E/E' suggestive of increased left atrial filling pressure The left atrium is mildly enlarged. Mild (1+) eccentric mitral valve insufficiency. Mild to moderate (1-2+) tricuspid valve insufficiency. Normal pulmonary artery pressure. Contrast study showed no right to left shunting Ordering Physician: Ghassan Angelo Referring Physician: Fer Long Performed By: Christina Scott [facility] Brain MRI 06/13/20 22:10 IMPRESSION: 1. 9 mm ill-defined round T2 FLAIR hyperintensity focus in between the right frontal horn and right ventral thalamus (series 6, image 14). Exact etiology is unknown at this time. MRI brain with intravenous contrast will be very helpful for further evaluation. 2. 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 3. Multiple chronic confluent white matter ischemic changes in both cerebral hemispheres. 4. 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 Electronically Signed: Hipolito Dee MD at 12:00 EDT , Service support , ADDENDUM: 06/13/20 1324 IMPRESSION: 1. 9 mm ill-defined round T2 FLAIR hyperintensity focus in between the right frontal horn and right ventral thalamus (series 6, image 14). Exact etiology is unknown at this time. MRI brain with intravenous contrast will be very helpful for further evaluation. 2. 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 3. Multiple chronic confluent white matter ischemic changes in both cerebral hemispheres. 4. 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 N.B. : MARKO You, confirmed on 06/13/2020 13:17:44 (ET) that the healthcare facility has received the radiology report. Electronically Signed: Hipolito Dee MD at 12:00 EDT , Service support , Head MRA 06/13/20 22:10 IMPRESSION: Normal MRA of the head Electronically Signed: Hiploito Dee MD at 12:19 EDT , Service support , Neck MRA 06/13/20 22:10 IMPRESSION: 1. Normal bilateral cervical carotid and vertebral arteries. 2. Normal aortic arch and origins of the great vessels. Electronically Signed: Hipolito Dee MD at 12:20 EDT , Service support , Brain MRI 06/14/20 11:00 IMPRESSION: 1. Mild enhancement in the right anterior thalamic lesion. Subacute stage infarct is most probable. Electronically Signed: Jet Angel MD at 16:04 EDT Tel , Service support , SOC teleneurology Operations: None Procedures: 2-D Echocardiogram Summary of Care Provided: The patient is a 70 year old F presents with left facial droop. Symptoms been going on for approximately 1 week. Patient was admitted for stroke work-up. Patient had an MRI without contrast that showed 9 mm ill-defined round T2 flair hyperintensity focus between the right frontal horn in the right ventral thalamus. Could not elucidate whether it was mass or stroke. Neurology was consulted and suspected related was a stroke but recommended MRI with contrast. That was performed today and was suggesting a subacute stroke. Patient's symptoms have slowly improved corn to the patient's who has been present at bedside. Patient did not have any other deficits in regards to any other current weakness. Neurology recommended continue with aspirin as well as high intensity statin. Patient follow-up with neurology as outpatient for further management. Complicating this is patient did have a hypertensive emergency and a blood pressure was 246/117. Patient was shortly on nicardipine drip and then was discontinued. Blood pressure still elevated and patient is currently on 10 mg of amlodipine and 10 mg of lisinopril. That will need to be further optimized as outpatient as is anticipated that her blood pressure will improve somewhat upon discharge but may need further optimization after discharge. There has been some expressed reluctance in regards to medications. Patient was previously taking herbs at home. Whether or not the patient will comply and take his medications is unclear but it was encouraged to she and her to comply with medications and to follow-up with their primary care providers. [] Patient Problems: Active and Suspected Problems (Last Updated 06/12/20 @ 23:[address] Ghassan Angelo MD) Hypertensive emergency (Acute) Stroke-like symptoms (Acute) - Physical Exam Vitals/I&O's: Vital Signs Temp Pulse Resp BP Pulse Ox 36.8 C 72 18 161/87 H 97 06/14/20 15:50 06/14/20 15:50 06/14/20 15:50 06/14/20 15:50 06/14/20 15:50 Oxygen Delivery Method Room Air Weight: 66.7 kg Body Mass Index (BMI) 25.7 Finger Stick Blood Glucose 96 Intake and Output for Last 24 Hours 06/12/20 06/13/20 06/14/20 23:59 23:59 23:59 Intake Total 273.33 / 273.33 980 / 980 480 / 480 Output Total 250 / 250 1850 / 1850 Balance 23.33 / 23.33 -870 / -870 480 / 480 Laboratory Results 06/14/20 05:55: Sodium 142, Potassium 3.2 L, Chloride 106, Carbon Dioxide 31.0, Anion Gap 5, BUN 22 H, Creatinine 0.66, Estim Creat Clear Calc 45.20, Est GFR (MDRD) Af Amer 115, Est GFR (MDRD) Non-Af 95, BUN/Creatinine Ratio 33.6 H, Glucose 97, Calcium 9.1 Current Medications Acetaminophen (Acetaminophen 325 Mg Tablet) 650 mg PO Q6H PRN PRN PRN Reason: Pain Score 1-10/Temp > 100.7 F Amlodipine Besylate (Amlodipine 10 Mg Tablet) 10 mg PO DAILY [facility] Last Admin: 06/14/20 07:56 Dose: 10 mg Documented by: Aspirin (Aspirin 81 Mg Tab.Chew) 81 mg PO DAILY@0800 [facility] Last Admin: 06/14/20 07:55 Dose: 81 mg Documented by: Atorvastatin Calcium (Atorvastatin Calcium 80 Mg Tablet) 80 mg PO QHS [facility] Last Admin: 06/13/20 20:12 Dose: 80 mg Documented by: Enoxaparin Sodium (Enoxaparin 40 Mg/0.4 Ml Syringe) 40 mg SC DAILY [facility] Last Admin: 06/14/20 07:56 Dose: 40 mg Documented by: Hydralazine HCl (Hydralazine 20 Mg/Ml Vial) 10 mg IV Q4H PRN PRN PRN Reason: SBP > 160 Last Admin: 06/13/20 16:16 Dose: 10 mg Documented by: Sodium Chloride () 250 mls @ 15 mls/hr IV .[id number] PRN PRN Reason: Saline Flush Labetalol HCl (Labetalol (Prefilled) 20 Mg/4 Ml) 10 mg IV Q4H PRN PRN PRN Reason: SBP > 160 Last Admin: 06/13/20 15:35 Dose: 10 mg Documented by: Lisinopril (Lisinopril 10 Mg Tablet) 10 mg PO DAILY [facility] Melatonin (Melatonin 3 Mg Tablet) 3 mg PO QHS PRN PRN PRN Reason: INSOMNIA Ondansetron HCl (Ondansetron 4 Mg/2 Ml Vial) 4 mg IV Q8H PRN PRN PRN Reason: NAUSEA/VOMITING Senna/Docusate Sodium (Senna/Docusate Sodium 1 Tablet) 2 tablet PO BID PRN PRN PRN Reason: Constipation Sodium Chloride (0.9% Saline Lock 10 Ml Syringe) 10 - 40 ml IV UD PRN PRN Reason: SALINE FLUSH Last Admin: 06/13/20 15:36 Dose: 20 ml Documented by: Discharge Diet: Low fat/ Low Cholesterol Call your doctor if you observe: - - unilateral (one-sided) weakness. difficulty speaking. Home Medications: Medications to take at Discharge Acetaminophen [Tylenol Tablet] 650 mg PO Q6H PRN PRN tablet 06/14/20 Amlodipine [Norvasc] 10 mg PO DAILY #30 tablet 06/14/20 Aspirin [Aspirin, Baby] 81 mg PO DAILY@0800 #0 tab.chew 06/14/20 Atorvastatin Calcium [Lipitor] 80 mg PO QHS #30 tablet 06/14/20 Lisinopril [Zestril] 10 mg PO DAILY #30 tablet 06/14/20 Following Prescriptions Were Given to Patient: Atorvastatin Calcium [Lipitor] 80 mg PO QHS #30 tablet Transmission Status: Pending to [facility] Amlodipine [Norvasc] 10 mg PO DAILY #30 tablet Transmission Status: Pending to [facility] Lisinopril [Zestril] 10 mg PO DAILY #30 tablet Transmission Status: Pending to [facility] Primary Care Physician: Rosa Cole MD [STAFF PHYSICIAN] - Within 2 Weeks Please Follow Up With: Sai Pedroza MD - Neurology When: 4-6 weeks, or another neurologist Disposition: Home Minutes spent on discharge:: 32 Patient Condition:: Good Medical Necessity - Tobacco Use Smoking Status: Never smoker Meaningful Use Info Meaningful Use Diagnoses (Choose all that apply): Ischemic CVA - CVA Therapy Assessed for PT,OT and/or ST?: Yes - Ischemic Stroke Antithrombotic order at d/c?: Yes Dx of Atrial fib/flutter?: Yes Anticoagulant at discharge?: No Reason anticoagulant not ordered: Treatment not Indicated Statins at discharge?: Yes Primary Dx Acute Ischemic CVA?: Yes IV tPA ordered during stay?: No Reason IV t-PA not ordered: Treatment not Indicated Inpatient E&M: 22868 Disch Hosp
== END 2020-06-14 17:27 | disposition home or self-care (01) | DRG 65 ==
LOC: ED 20:01 → ICU 21:32 → PCU 06-13 11:13
PROVIDERS: Internal Medicine Critical Care Medicine; Admitting Provider Hospitalist; Emergency Provider Emergency Medicine; PCP Family Medicine
DX: I63.9 Cerebral infarction, unspecified (principal); I16.1 Hypertensive emergency; R29.810 Facial weakness; E87.6 Hypokalemia; I10 Essential (primary) hypertension; R82.71 Bacteriuria; H53.002 Unspecified amblyopia, left eye; R01.1 Cardiac murmur, unspecified
CPT/HCPCS: 70450; 70544; 70549; 70551; 70552; 71045; 80048; 80053; 80061; 81001; 83036; 83735; 84484; 85025; 93005; 93306; 97162; 97165; 99285; A9575; J7050; A4216